=== PATIENT | male | born 1985 | race Caucasian/White ===

== ENCOUNTER 2016-08-21 09:12 | Day surgery (SDC) | payer BC ==
[~2016-08-21 09:12] MED LIST: ACETAMINOPHEN 1,000 MG/100 ML BTL IV ONE; CEFAZOLIN 2 Gram 2 GM/50 ML BAG IVPB ONE
[2016-08-21] MEDS ORDERED: HYDROCODONE/APAP 5/325MG TABLET PO ONE (14:32)
[2016-08-21] MEDS ORDERED: BUPIVACAINE 0.25% W/EPI MPF 30ML VIAL IVP ONE (14:32)
[2016-08-21] MEDS ORDERED: SEVOFLURANE 250 ML INH ONE (16:22)
[2016-08-21] MEDS ORDERED: ONDANSETRON HCL IV 4 MG/2 ML VIAL IVP ONE (16:22)
[2016-08-21] MEDS ORDERED: FENTANYL PF 100MCG/2ML VIAL IV ONE (16:22)
[2016-08-21] MEDS ORDERED: LIDOCAINE 2% MDV (20MG/ML) 20ML VIAL IV ONE (16:22)
[2016-08-21] MEDS ORDERED: PROPOFOL 10 MG/ML VIAL IV ONE (16:22)
[2016-08-21] MEDS ORDERED: MIDAZOLAM HCL 2MG/2ML VIAL IV ONE (16:22)
[2016-08-21] MEDS ORDERED: KETOROLAC 30 MG/ML VIAL IVP ONE (16:22)
--- NOTE | 2016-08-28 11:28 | Operative Note ---
DATE OF SURGERY: 08/21/2016 Surgeon: Jose Champion D.O. Referring Physician: Geo Prajapati D.O. PREOPERATIVE DIAGNOSIS: Right flank mass. POSTOPERATIVE DIAGNOSIS: Right flank mass. OPERATION: Excision of right flank mass. Indication: Patient is a 31-year-old male who has had a longstanding history of a right flank mass. On exam, he did have what appeared to be clinically a rather large flank lipoma. We did discuss excision and the risks, benefits, and alternatives. Risks include bleeding, infection, acute chronic pain, recurrence, postop seroma formation, and need for drain placement. He understood this fully. Informed consent was signed and questions answered. PROCEDURE: He was taken to the operating room and placed in the supine position. General anesthesia was administered per Department of Anesthesia. Patient was rotated into the left lateral position. His flank and back were prepped in the usual sterile fashion. The area over the mass was anesthetized with a total of 10 mL of 0.25% Sensorcaine with epinephrine. A localized field block was also done. At this time, a 6.5 cm incision was made. This was carried down to the subcutaneous tissue to the latissimus muscles. These muscles were spread in the direction of his fibers. We did encounter a large, lipomatous mass underneath the muscle. This was then dissected free of the surrounding tissue using blunt dissection as well as cautery. The mass was then fully excised and passed out the field. This did measure 11x8 cm. Due to the large size and cavity, I did elect to place a #7 flat Allan-Eason drain, which was brought out through a separate step incision. At this time, the wound was then closed with 3-0 and 4-0 Vicryl. The drain was sutured in with 3-0 nylon. Steri-Strips were applied. He was taken to the Recovery Room in satisfactory condition. FINDINGS AT THE TIME OF SURGERY: An 11 cm x 8 cm soft tissue mass extending to the muscle. CC: Geo Prajapati D.O. [facility]ALSamantha
== END 2016-08-21 12:40 | disposition home or self-care (01) ==
LOC: SUR 09:12
PROVIDERS: ATTEND Surgery
DX: D17.9 Benign lipomatous neoplasm, unspecified (principal)
CPT/HCPCS: 11406; 13101; 13102; 00300; J1885; J2405; J3010; J0690